=== PATIENT | male | born 1995 | race Caucasian/White ===

== ENCOUNTER 2021-07-23 23:43 | Emergency (ER) | payer BC ==
[~2021-07-23 23:43] MED LIST: FLOMAX0.4 MG PO; LODINE CAP 300300 MG PO; ZOFRAN ODT 4 MG4 MG PO; ZOFRAN4 MG PO
[2021-07-24] MEDS ORDERED: NORFLEX 100 MG100 MG PO (01:26)
[2021-07-24] MEDS ORDERED: IBUPROFEN600 MG PO (01:27)
== END 2021-07-24 01:40 | disposition home or self-care (01) ==
LOC: ER1 23:43
DX: S30.0XXA Contusion of lower back and pelvis, initial encounter (principal); X50.9XXA Other and unspecified overexertion or strenuous movements or postures, initial encounter
CPT/HCPCS: 72100; 96372; 99283; J1885

== ENCOUNTER 2021-08-18 23:59 | Emergency (ER) | payer BC ==
[~2021-08-18 23:59] MED LIST changes: +IBUPROFEN600 MG PO; +NORFLEX 100 MG100 MG PO
[2021-08-19 01:31] LABS: HEMOGLOBIN 15.9 gm/dl (14.0-17.5); RED BLOOD COUNT 5.17 M/UL (4.20-5.50); WHITE BLOOD COUNT 6.2 K/UL (4.5-11.0)
[2021-08-19 02:07] LABS: BUN/CREATININE RATIO 14 (0-10)
== END 2021-08-19 04:12 | disposition home or self-care (01) ==
LOC: ER1 23:59
PROVIDERS: Physician Assistant
DX: R07.89 Other chest pain (principal); E87.6 Hypokalemia
CPT/HCPCS: 71045; 80053; 82550; 82553; 84484; 85025; 93005; 99285

== ENCOUNTER 2021-09-24 19:38 | Emergency (ER) | payer BC ==
[2021-09-25] MEDS ORDERED: IBU600 MG PO (00:24)
[2021-09-25] MEDS ORDERED: CYCLOBENZAPRIN7.5 MG PO (00:24)
== END 2021-09-25 00:54 | disposition home or self-care (01) ==
LOC: ER1 19:38
DX: S39.012A Strain of muscle, fascia and tendon of lower back, initial encounter (principal); X50.0XXA Overexertion from strenuous movement or load, initial encounter
CPT/HCPCS: 96372; 99283; J1885